=== PATIENT | male | born 1985 | race Caucasian/White ===

== ENCOUNTER 2023-04-09 08:00 | Emergency (ER) | payer BC ==
[~2023-04-09] VITALS: Ht 175.3 cm; Wt 68.0 kg
[2023-04-09 08:07] VITALS: O2SAT 100
[2023-04-09 09:55] VITALS: BP 133/89; PULSE 63; RESP 18; TEMP 97.3
== END 2023-04-09 09:56 | disposition home or self-care (01) ==
LOC: ER 08:00
DX: H43.399 Other vitreous opacities, unspecified eye (principal)
CPT/HCPCS: 99284